=== PATIENT | female | born 1975 | race Caucasian/White ===

== ENCOUNTER → 2016-06-25 | Outpatient (REF) | payer BC | LOC: M LAB REF 09:42 | PROVIDERS: ATTEND Physician Assistant Medical | DX: J02.9 Acute pharyngitis, unspecified (principal) ==

== ENCOUNTER → 2017-02-26 | Outpatient (REF) | payer BC | LOC: M LAB REF 12:37 | DX: D48.5 Neoplasm of uncertain behavior of skin (principal) | CPT/HCPCS: 88305 ==

== ENCOUNTER → 2017-04-29 | Outpatient (CLI) | payer BC ==
[2017-05-02 00:06] LABS: TISSUE TRANSGLUTAMINASE IgG <2 U/mL (0-5)
[2017-05-02 00:06] LABS: ENDOMYSIAL ABY IgA Negative (Negative); TISSUE TRANSGLUTAMINASE IgA <2 U/mL (0-3)
== END ==
LOC: M WUC 12:18
DX: K58.0 Irritable bowel syndrome with diarrhea (principal)

== ENCOUNTER → 2020-09-24 | Outpatient (CLI) | payer BC ==
[2020-09-24 15:01] LABS: BASO % 0.3 % (0.0-1.0); EOS # 0.1 10^3/uL (0.0-0.5); EOS % 1.6 % (0.0-3.0); HEMATOCRIT 39.3 % (36.0-47.0); HEMOGLOBIN 12.5 g/dl (12.0-15.5); LYMPH # 1.8 10^3/uL (1.5-5.0); LYMPH % 20.3 % (24.0-44.0); MEAN CORPUSCULAR HEMOGLOBIN 31.1 pg (27.0-33.0); MEAN CORPUSCULAR HGB CONC 31.8 g/dl (32.0-36.5); MEAN CORPUSCULAR VOLUME 97.8 fl (80.0-96.0); MONO # 0.6 10^3/uL (0.0-0.8); MONO % 6.4 % (2.0-8.0); NEUTROPHILS # 6.3 10^3/uL (1.5-8.5); NEUTROPHILS % 71.1 % (36.0-66.0); PLATELET COUNT, AUTOMATED 238 10^3/uL (150-450); RED BLOOD COUNT 4.02 10^6/uL (4.00-5.40); WHITE BLOOD COUNT 8.9 10^3/uL (4.0-10.0)
[2020-09-24 15:36] LABS: ALBUMIN 3.4 GM/DL (3.2-5.2); ALT/SGPT 21 U/L (12-78); BILIRUBIN,TOTAL 0.3 MG/DL (0.2-1.0); BLOOD UREA NITROGEN 17 MG/DL (7-18); CALCIUM LEVEL 8.1 MG/DL (8.5-10.1); CARBON DIOXIDE LEVEL 27 MEQ/L (21-32); CHLORIDE LEVEL 108 MEQ/L (98-107); CHOLESTEROL LEVEL 161 MG/DL (<200); CHOLESTEROL RISK RATIO 3.285 (<5); CREATININE FOR GFR 0.79 MG/DL (0.55-1.30); GLOMERULAR FILTRATION RATE > 60.0 (>58); GLUCOSE, FASTING 84 MG/DL (70-100); HDL CHOLESTEROL 49 MG/DL (>40); LDL CHOLESTEROL 86 MG/DL (<100); NON-HDL-C 112 MG/DL; POTASSIUM SERUM 4.2 MEQ/L (3.5-5.1); SODIUM LEVEL 140 MEQ/L (136-145); TOTAL 25(OH) VITAMIN D 58.2 NG/ML (30.0-100.0); TOTAL PROTEIN 6.5 GM/DL (6.4-8.2); TRIGLYCERIDES LEVEL 131 MG/DL (<150)
[2020-09-24 15:50] LABS: HEMOGLOBIN A1c 5.1 %
== END ==
LOC: M WUC 12:12
PROVIDERS: ATTEND Nurse Practitioner Family
DX: K58.9 Irritable bowel syndrome, unspecified (principal); G43.B0 Ophthalmoplegic migraine, not intractable; H81.13 Benign paroxysmal vertigo, bilateral; Z79.899 Other long term (current) drug therapy

== ENCOUNTER → 2021-08-22 | Outpatient (CLI) | payer BC ==
[2021-08-22 09:51] LABS: BASO % 0.3 % (0.0-1.0); EOS # 0.1 10^3/uL (0.0-0.5); HEMATOCRIT 39.7 % (36.0-47.0); HEMOGLOBIN 12.9 g/dl (12.0-15.5); LYMPH # 1.5 10^3/uL (1.5-5.0); LYMPH % 23.4 % (24.0-44.0); MEAN CORPUSCULAR HEMOGLOBIN 31.2 pg (27.0-33.0); MEAN CORPUSCULAR HGB CONC 32.5 g/dl (32.0-36.5); MEAN CORPUSCULAR VOLUME 96.1 fl (80.0-96.0); MONO # 0.4 10^3/uL (0.0-0.8); MONO % 6.5 % (2.0-8.0); NEUTROPHILS # 4.4 10^3/uL (1.5-8.5); NEUTROPHILS % 67.5 % (36.0-66.0); PLATELET COUNT, AUTOMATED 211 10^3/uL (150-450); RED BLOOD COUNT 4.13 10^6/uL (4.00-5.40); WHITE BLOOD COUNT 6.6 10^3/uL (4.0-10.0)
[2021-08-22 10:10] LABS: ERYTHROCYTE SEDIMENTATION RATE 9 mm/hr (0-20)
[2021-08-22 10:17] LABS: ALBUMIN 3.6 GM/DL (3.2-5.2); ALT/SGPT 19 U/L (12-78); BILIRUBIN,TOTAL 0.4 MG/DL (0.2-1.0); BLOOD UREA NITROGEN 14 MG/DL (7-18); C REACTIVE PROTEIN QUANTITATIV 1.41 MG/DL (0.00-0.30); CALCIUM LEVEL 8.5 MG/DL (8.5-10.1); CARBON DIOXIDE LEVEL 26 MEQ/L (21-32); CHLORIDE LEVEL 111 MEQ/L (98-107); CHOLESTEROL LEVEL 193 MG/DL (<200); CHOLESTEROL RISK RATIO 3.112 (<5); CREATININE FOR GFR 0.87 MG/DL (0.55-1.30); GLOMERULAR FILTRATION RATE > 60.0 (>58); GLUCOSE, FASTING 81 MG/DL (70-100); HDL CHOLESTEROL 62 MG/DL (>40); LDL CHOLESTEROL 98 MG/DL (<100); NON-HDL-C 131 MG/DL; POTASSIUM SERUM 4.5 MEQ/L (3.5-5.1); RHEUMATOID FACTOR QUANT < 10.0 IU/ML (<15.0); SODIUM LEVEL 141 MEQ/L (136-145); TOTAL PROTEIN 6.9 GM/DL (6.4-8.2); TRIGLYCERIDES LEVEL 164 MG/DL (<150)
[2021-08-22 10:25] LABS: TOTAL 25(OH) VITAMIN D 63.8 NG/ML (30.0-100.0)
[2021-08-24 01:07] LABS: ANA (HEP2) Negative (.); CYCLIC CITRULLINATED PEPTIDE 5 units (0-19)
== END ==
LOC: M WUC 08:31
PROVIDERS: ATTEND Nurse Practitioner Family
DX: Z00.01 Encounter for general adult medical examination with abnormal findings (principal); K58.9 Irritable bowel syndrome, unspecified; E55.9 Vitamin D deficiency, unspecified; M25.541 Pain in joints of right hand; M25.542 Pain in joints of left hand; Z79.899 Other long term (current) drug therapy; H81.13 Benign paroxysmal vertigo, bilateral; G43.B0 Ophthalmoplegic migraine, not intractable

== ENCOUNTER → 2022-10-08 | Outpatient (CLI) | payer OTHER ==
[~2022-10-08] MED LIST: ISOVUE-370 76% 100ML VIAL As Ordered ONE
== END ==
LOC: M RAD 14:26
PROVIDERS: ATTEND Internal Medicine
DX: R10.2 Pelvic and perineal pain (principal)
CPT/HCPCS: 74177; Q9967

== ENCOUNTER → 2022-10-16 | Outpatient (CLI) | payer OTHER | LOC: M WUC 15:52 | PROVIDERS: ATTEND Internal Medicine | DX: R10.814 Left lower quadrant abdominal tenderness (principal); M16.12 Unilateral primary osteoarthritis, left hip ==